=== PATIENT | male | born 1940 | race Hispanic/Latino ===

== ENCOUNTER → 2020-05-21 | Day surgery (SDC) | payer MEDICARE, OTHER ==
[2020-05-17 13:31] LABS: BASOPHILS # (AUTO) 0.1 (0.0-0.1); BASOPHILS % 1.3 % (0.0-1.0); EOSINOPHILS # (AUTO) 0.2 (0.0-0.4); HEMOGLOBIN 14.6 g/dL (14.0-18.0); LYMPHOCYTES # (AUTO) 1.6 (1.0-3.2); LYMPHOCYTES % 33.8 % (18.0-39.1); MEAN CORPUSCULAR HEMOGLOBIN 25.4 pg (28-32); MEAN CORPUSCULAR HGB CONC 31.1 g/dL (31-35); MEAN CORPUSCULAR VOLUME 81.7 fL (81-99); MONOCYTES # (AUTO) 0.5 (0.2-0.8); MONOCYTES % 10.6 % (4.4-11.3); NEUTROPHILS # (AUTO) 2.3 (2.1-6.9); NEUTROPHILS % 49.5 % (38.7-80.0); PLATELET COUNT 179 x10e3/uL (140-360); RED BLOOD COUNT 5.75 x10e6/uL (4.3-5.7); RED CELL DISTRIBUTION WIDTH 14.6 % (11.7-14.4)
[2020-05-17 13:52] LABS: ALANINE AMINOTRANSFERASE 38 IU/L (0-55); ALBUMIN 4.1 g/dL (3.5-5.0); ALBUMIN/GLOBULIN RATIO 1.1 (0.8-2.0); ALKALINE PHOSPHATASE 58 IU/L (40-150); ANION GAP 13.2 mmol/L (8-16); BLOOD UREA NITROGEN 16 mg/dL (7-26); BUN/CREATININE RATIO 15 (6-25); CALCIUM 9.3 mg/dL (8.4-10.2); CARBON DIOXIDE 21 mmol/L (22-29); CHLORIDE 109 mmol/L (98-107); CREATININE, SERUM 1.04 mg/dL (0.72-1.25); EST GLOMERULAR FILTRATION RATE > 60 ML/MIN (60-); GLUCOSE 84 mg/dL (74-118); POTASSIUM 4.2 mmol/L (3.5-5.1); SODIUM 139 mmol/L (136-145)
--- NOTE | 2020-05-17 14:03 | Diagnostic Imaging Report ---
X-ray chest PA and lateral Comparison: None History: Preop Findings: Central airways unremarkable. Heart size enlarged. Atherosclerotic aorta. No definite pleural effusion. No pneumothorax. No focal lung infiltrates or nodules. Right lateral pleural thickening in the mid chest of approximately 8 mm at its widest x 44 mm at the longest. This could represent a pleural plaque, pleural thickening, a pleural-based mass is not ruled out. Bones are unremarkable. The diaphragms on the lateral view are low and flat. COPD should be considered and correlated clinically. Upper abdomen is unremarkable. Impression: No acute cardiopulmonary disease. Right pleural thickening. Possible COPD requiring clinical correlation. Signed by: Reg Humphries MD on 05/17/2020 1:59 PM
[~2020-05-21] VITALS: Ht 180.3 cm; Wt 80.3 kg
[~2020-05-21] MED LIST: ADVAIR 100-501 EACH INH; B&O 60MG R/S 60 MG SUPP PR ONE; CIPRO500 MG PO; FENTANYL CITRATE/PF 100MCG/2 ML INJ ONE; FINASTERIDE5 MG PO; FLOMAX0.4 MG PO; GENTAMICIN 80MG/NS 100 ML 200 ML IV ONE; IOPAMIDOL 300MG/ML 50ML INFUS..BTL IV ONE; LEVOTHYROXINE75 MCG PO; LIDOCAINE HCL 2% LOCAL INJ 5 ML SDV VIAL INJ ONE; METOCLOPRAMIDE HCL 10 MG/2ML VIAL ONE; ONDANSETRON HCL INJ 2MG/ML 2ML 2 MG/ML VIAL ONE; PANTOPRAZOLE SO40 MG PO; PIPER-TAZ 3.375 GM 50 ML ONE; PROPOFOL IV EMULSION 10 MG/ML 20 ML VIAL ONE; SEVOFLURANE INHAL SOLN 250 ML PEN BTL ONE; ULTRAM 50MG50 MG PO; VITAMIN C500 MG PO
[2020-05-21 13:25] VITALS: BP 155/105
--- NOTE | 2020-05-22 20:29 | Operative Report ---
DATE OF PROCEDURE: 05/21/2020 SURGEON: Jun Seals MD PREOPERATIVE DIAGNOSES: 1. Elevated PSA. 2. History of bladder cancer. 3. Incomplete bladder emptying. POSTOPERATIVE DIAGNOSES: 1. Elevated PSA. 2. Abnormal digital rectal examination with indurated right mid prostate. 3. History of bladder cancer, status post resection. 4. Incomplete bladder emptying. 5. Urethral stricture disease. 6. Right-sided vesicoureteric reflux. OPERATIONS PERFORMED: 1. Transrectal sonography, no radiologist present. 2. Interpretation of ultrasonographic guidance for needle biopsies, no radiologist present. 3. Transrectal needle biopsies of the prostate (separate procedure was performed for the elevated PSA and abnormal digital rectal examination). 4. Cystourethroscopy with calibration and dilation of urethral stricture disease (separate procedure was performed for the stricture disease). 5. Cystourethroscopy with bilateral ureteral catheterization and retrograde ureteropyelography (separate procedure was performed for the bladder cancer and incomplete bladder emptying). 6. Interpretation of retrograde ureteropyelography. 7. Supervision of fluoroscopy, no radiologist present. 8. Interpretation of cystography, no radiologist present. ANESTHESIA: General. COMPLICATIONS: None. CLINICAL SUMMARY: Gordy Driscoll is a 80-year-old man with an elevated PSA. He has had a history of bladder cancer, that was managed with resection in [place]. The patient is brought for the above procedure. He and the family were aware of the risks of bleeding, infection, injury to adjacent structures, need for additional procedures, and elected to proceed. OPERATIVE PROCEDURE IN DETAIL: Informed consent was verified as well. Gordy Driscoll was properly identified, taken the operating room, placed on the cystoscopy table in supine position, and anesthesia was uneventfully begun. The patient was then carefully and gently repositioned in the dorsal lithotomy position with all pressure points well padded. Transrectal sonography was performed. Transrectal examination revealed a 50 g prostate, that is smooth and nonfluctuant, but did contain induration at the level of the mid prostate on the right-hand side. Transrectal sonography was then performed. Interpretation of transrectal sonography, the prostate capsule was removed. There was a hypoechoic area in the right mid prostate noted on sonography. Prostate was very large, measuring 106 mL. There were a few calcifications at the junction between the peripheral transition zone. Seminal vesicles were unremarkable. With ultrasonographic guidance, needle biopsies of the prostate were taken. Two biopsies were taken at each of 6 locations and sent in 6 different containers. These were differentiated right versus left and base versus mid versus apex. The patient's genitalia were prepared and draped in usual sterile fashion. The cystoscope sheath with the visual obturator in place was atraumatically inserted into the patient's urethra. It was guided down the urethra, which was remarkable for panurethral stricture disease. This stricture disease I estimate as ranges from 14-to 18-[place] in size. We gently dilated across all these strictures with a 22.5 sheath, just dilating it to the 22.5-[place]. We went through the normal sphincteric region through the prostate bed, which was significant for visually obstructing BPH with kissing lateral lobes. We entered the patient's bladder, which exhibited trabeculations and a laterally displaced right ureteral orifice. Contrast was injected in the cystogram. Ureteral catheter was used to cannulate each ureter and retrograde ureteropyelograms were performed. Interpretation of retrograde ureteropyelography contrast was instilled in retrograde fashion bilaterally. There were no tumors. There were no stones. There were no diverticula. There was hydroureteronephrosis on the right hand side down the level of the patient's bladder. An unobstructed drainage was observed fluoroscopically. Interpretation of cystography contrast was utilized to opacify the bladder. Trabeculations were noted. There was right-sided vesicoureteric reflux. The patient's bladder was drained and the cystoscope was withdrawn. A belladonna and opium suppository were placed and the patient was uneventfully reversed from anesthesia and taken to recovery room in stable condition. There were no complications to the procedure. He tolerated the procedure well. Plans will be to bring the patient back to the operating room for transurethral resection of the prostate. We will evaluate the patient, discuss this procedure with him preoperatively. We will eagerly await the results of the prostate biopsies. MD MARTIN Hicks/SULEIMAN /[id number]
== END | disposition home or self-care (01) ==
LOC: OR 09:31
PROVIDERS: ATTEND Urology
DX: R97.20 Elevated prostate specific antigen [PSA] (principal); N41.0 Acute prostatitis; N41.1 Chronic prostatitis; N35.919 Unspecified urethral stricture, male, unspecified site; N13.70 Vesicoureteral-reflux, unspecified; N32.89 Other specified disorders of bladder; N40.1 Benign prostatic hyperplasia with lower urinary tract symptoms; N13.8 Other obstructive and reflux uropathy; R39.14 Feeling of incomplete bladder emptying; N13.30 Unspecified hydronephrosis; Z88.6 Allergy status to analgesic agent; Z01.810 Encounter for preprocedural cardiovascular examination; Z01.812 Encounter for preprocedural laboratory examination; Z01.818 Encounter for other preprocedural examination; Z11.59 Encounter for screening for other viral diseases; Z85.51 Personal history of malignant neoplasm of bladder; Z87.891 Personal history of nicotine dependence
CPT/HCPCS: 36415; 52281; 55700; 71046; 74420; 76872; 76998; 80053; 85025; 88305; 93005; C1758; J1580; J2001; J2405; J2543; J2704; J2765; J3010; Q9967; U0002

== ENCOUNTER → 2022-05-08 | Day surgery (SDC) | payer MEDICARE ==
[2022-05-04 14:27] LABS: BASOPHILS # (AUTO) 0.1 (0.0-0.1); BASOPHILS % 1.4 % (0.0-1.0); EOSINOPHILS # (AUTO) 0.2 (0.0-0.4); EOSINOPHILS % 3.9 % (0.0-6.0); HEMATOCRIT 49.2 % (38.2-49.6); HEMOGLOBIN 15.5 g/dL (14.0-18.0); LYMPHOCYTES # (AUTO) 1.5 (1.0-3.2); MEAN CORPUSCULAR HEMOGLOBIN 26.2 pg (28-32); MEAN CORPUSCULAR HGB CONC 31.5 g/dL (31-35); MEAN CORPUSCULAR VOLUME 83.1 fL (81-99); MONOCYTES # (AUTO) 0.6 (0.2-0.8); MONOCYTES % 12.8 % (4.4-11.3); NEUTROPHILS # (AUTO) 2.1 (2.1-6.9); NEUTROPHILS % 47.2 % (38.7-80.0); PLATELET COUNT 185 x10e3/uL (140-360); RED BLOOD COUNT 5.92 x10e6/uL (4.3-5.7); RED CELL DISTRIBUTION WIDTH 14.6 % (11.7-14.4)
[2022-05-04 14:44] LABS: ANION GAP 11.6 mmol/L (8-16); CREATININE, SERUM 1.15 mg/dL (0.72-1.25); POTASSIUM 4.6 mmol/L (3.5-5.1)
[~2022-05-08] MED LIST changes: +ACETAMINOPHEN 1000 MG/100 ML IV ONE; -B&O 60MG R/S 60 MG SUPP PR ONE; +BUPIVACAINE 0.25% 30ML SDV ONE; +CETIRIZINE HCL10 MG PO; -GENTAMICIN 80MG/NS 100 ML 200 ML IV ONE; -IOPAMIDOL 300MG/ML 50ML INFUS..BTL IV ONE; +LIDOCAINE 1% W/EPINEPHRINE 20 ML VIAL ONE; +LIDOCAINE HCL 1% LOCAL INJ 20 ML VIAL ONE; -LIDOCAINE HCL 2% LOCAL INJ 5 ML SDV VIAL INJ ONE; -METOCLOPRAMIDE HCL 10 MG/2ML VIAL ONE; +ONDANSETRON HCL INJ 2MG/ML 2ML 2 MG/ML VIAL IV ONE; -ONDANSETRON HCL INJ 2MG/ML 2ML 2 MG/ML VIAL ONE; -PIPER-TAZ 3.375 GM 50 ML ONE; +PROPOFOL IV EMULSION 10 MG/ML 20 ML VIAL IV ONE; -PROPOFOL IV EMULSION 10 MG/ML 20 ML VIAL ONE; +SEVOFLURANE INHAL SOLN 250 ML PEN BTL INH ONE; -SEVOFLURANE INHAL SOLN 250 ML PEN BTL ONE
[2022-05-08 10:55] VITALS: BP 160/66
== END | disposition home or self-care (01) ==
LOC: OR 07:10
PROVIDERS: ATTEND Surgery
DX: K40.90 Unilateral inguinal hernia, without obstruction or gangrene, not specified as recurrent (principal); Z88.8 Allergy status to other drugs, medicaments and biological substances; J45.909 Unspecified asthma, uncomplicated; N40.0 Benign prostatic hyperplasia without lower urinary tract symptoms; Z85.51 Personal history of malignant neoplasm of bladder; E03.9 Hypothyroidism, unspecified; Z01.810 Encounter for preprocedural cardiovascular examination; Z01.812 Encounter for preprocedural laboratory examination; Z20.822 Contact with and (suspected) exposure to COVID-19
CPT/HCPCS: 0223U; 36415; 49505; 71046; 80048; 85025; 93005; C1781; J0131; J2405; J2704; J3010; J2001

== ENCOUNTER 2025-04-16 16:16 | Emergency (ER) | payer MEDICARE ==
[~2025-04-16] VITALS: Ht 180.3 cm; Wt 74.8 kg
[~2025-04-16 16:16] MED LIST changes: -ACETAMINOPHEN 1000 MG/100 ML IV ONE; -BUPIVACAINE 0.25% 30ML SDV ONE; -FENTANYL CITRATE/PF 100MCG/2 ML INJ ONE; -LIDOCAINE 1% W/EPINEPHRINE 20 ML VIAL ONE; -LIDOCAINE HCL 1% LOCAL INJ 20 ML VIAL ONE; -ONDANSETRON HCL INJ 2MG/ML 2ML 2 MG/ML VIAL IV ONE; -PROPOFOL IV EMULSION 10 MG/ML 20 ML VIAL IV ONE; -SEVOFLURANE INHAL SOLN 250 ML PEN BTL INH ONE
[2025-04-16 17:00] VITALS: PULSE 76; RESP 18; TEMP 98.5; O2SAT 100
== END 2025-04-16 20:40 | disposition left against medical advice (07) ==
LOC: ER 16:16
DX: M79.605 Pain in left leg (principal)
CPT/HCPCS: 99283